=== PATIENT | female | born 1995 | race Two or more races ===

== ENCOUNTER 2017-05-17 12:07 | Emergency (ER) | payer MEDICAID ==
[~2017-05-17] VITALS: Ht 165.1 cm; Wt 54.4 kg
[~2017-05-17 12:07] MED LIST: ABILIFY2 MG ORAL; AUGMENTIN TAB875 MG ORAL; BACTRIM-DS1 EA ORAL; BISACODYL5 MG ORAL; COLACE100 MG ORAL; IBUPROFEN600 MG ORAL; LAMICTAL150 MG ORAL; LEXAPRO20 MG ORAL; METFORMIN HCL500 M1 ORAL; NITROFURANTOIN100 M2 ORAL; NORCO 5-325 TA1 EACH PO; ZOFRAN8 MG ORAL
[2017-05-17] MEDS ORDERED: Ketorolac 60mg Inj IM ONE (12:15)
[2017-05-17] MEDS ORDERED: IBUPROFEN600 MG ORAL (13:18)
--- NOTE | 2017-05-17 13:51 | Diagnostic Imaging Report ---
Indication: PAIN Technique: Or views of the left knee Comparison: None Findings:There is suggestion of superior and lateral subluxation of the patella. No underlying fracture. Joint spaces are preserved. No definite joint effusion Impression:Suspect patellar subluxation. Correlate with clinical findings
[2017-05-17 13:53] VITALS: BP 141/62
--- NOTE | 2017-05-20 20:08 | Emergency Room Report ---
History of Present Illness General Chief Complaint: Lower Extremity Injury Source: Patient Present Illness HPI Patient is a 22-year-old female who presented after increased left knee pain. The patient had acute onset of symptoms. Patient was brought in by EMS. Patient previous patellar dislocations after a sports injury. She previously been told that she needed surgery on her knee. The patient was noted to have self reduced the dislocation prior to arrival. She had not been able to ambulate effectively. Patient denied any numbness or weakness to her foot. Allergies: Coded Allergies: No Known Allergies (Unverified , 03/29/13) Patient History Past Medical History: see triage record Now: No Reviewed Nursing Documentation: PMH: Agreed, PSxH: Agreed Nursing Documentation-PMH Hx Cardiac Problems: No Hx Hypertension: No Hx Pacemaker: No Hx Asthma: No Hx COPD: No Hx Diabetes: No Hx Cancer: No Hx Gastrointestinal Problems: Yes Hx Neurological Problems: No Hx Cerebrovascular Accident: No Hx Seizures: No Review of Systems All Other Systems: negative except mentioned in HPI Physical Exam Vital Signs Date Time Temp Pulse Resp B/P (MAP) Pulse Ox O2 Delivery O2 Flow Rate FiO2 05/17/17 12:05 98.1 80 16 134/83 98 Room Air Sp02 EP Interpretation: reviewed, normal General Appearance: normal inspection, well appearing, no apparent distress, alert, GCS 15, non-toxic Head: atraumatic ENT: normal ENT inspection, hearing grossly normal, normal voice Neck: normal inspection, full range of motion, supple, no bony tend Respiratory: normal inspection, lungs clear, normal breath sounds, no respiratory distress, no retraction, no wheezing Cardiovascular #1: regular rate, rhythm, no edema Gastrointestinal: normal inspection, normal bowel sounds, non tender, soft, no guarding, no hernia Genitourinary: no CVA tenderness Musculoskeletal: normal inspection, back normal, swelling - limited ROM Neurologic: normal inspection, alert, responsive, speech normal Psychiatric: normal inspection, judgement/insight normal, mood/affect normal Skin: normal inspection, normal color, no rash Medical Decision Making Diagnostic Impression: Primary Impression: Closed patellar dislocation ER Course Patient presented for knee pain. Differential diagnosis included was not limited to popliteal aneurysm, arthritis, patellar dislocation, ligamentous injury, septic joint among others. Patient's benign exam and does not appear to require any further laboratory testing at this time. X-ray imaging of the leftt knee 4 views interpreted by Radiology showed patellar subluxation. 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 The patient was advised followup with orthopedics for further operative management. Patient was placed in a knee immobilizer and given crutches. The patient was advised followup with primary care physician for orthopedic referral Last Vital Signs Date Time Temp Pulse Resp B/P (MAP) Pulse Ox O2 Delivery O2 Flow Rate FiO2 05/17/17 13:53 98.0 88 16 141/62 98 Room Air Status: improved Disposition: HOME, SELF-CARE Condition: Stable Scripts Ibuprofen* (MOTRIN*) 600 Mg Tablet 600 MG ORAL Q8H, #30 TAB 0 Refills Prov: Isac Cook 05/17/17 Referrals: [facility]ERR[facility] (PCP) Patient Instructions: Patellar Dislocation Isac Cook May 20, 2017 20:08
== END 2017-05-17 13:59 | disposition home or self-care (01) ==
LOC: EDBD 12:07 → EMR 13:44
DX: S83.005A Unspecified dislocation of left patella, initial encounter (principal); X58.XXXA Exposure to other specified factors, initial encounter; Y93.9 Activity, unspecified; Y92.9 Unspecified place or not applicable
CPT/HCPCS: 96372; 99283